=== PATIENT | female | born 1975 | race Caucasian/White ===

== ENCOUNTER 2016-07-19 10:59 | Outpatient (CLI) ==
[2015-01-18 19:32] VITALS: BMI 32.5
[2016-07-19 13:14] LABS: BASOPHILS # (AUTO) 0.1 K/uL (0-0.2); BASOPHILS % (AUTO) 0.8 % (0.0-3.0); EOSINOPHILS # (AUTO) 0.1 K/ul (0.0-0.7); EOSINOPHILS % (AUTO) 0.8 % (0.0-7.0); HEMATOCRIT 42.6 % (37.0-47.0); HEMOGLOBIN 13.6 g/dl (12.0-16.0); IMMATURE GRANULOCYTE % (AUTO) 1.1 % (0.0-5.0); LYMPHOCYTES # (AUTO) 2.4 K/uL (0.60-3.4); LYMPHOCYTES % (AUTO) 31.1 (10.0-50.0); MEAN CORPUSCULAR HEMOGLOBIN 27.3 pg (27.0-31.0); MEAN CORPUSCULAR HGB CONC 31.9 (31.8-35.4); MEAN CORPUSCULAR VOLUME 85.5 fl (81.0-99.0); MONOCYTES # (AUTO) 0.7 K/uL (0.4-2.0); MONOCYTES % (AUTO) 8.8 (0-10); NEUTROPHILS # (AUTO) 4.4 K/ul (2.0-6.9); NEUTROPHILS % (AUTO) 57.4; PLATELET COUNT 284 10^3/uL (140-440); RED BLOOD COUNT 4.98 10^6/ul (4.20-5.40)
[2016-07-19 13:51] LABS: ALBUMIN 3.9 g/dL (3.4-5.0); ANION GAP 14.9; BILIRUBIN,TOTAL 0.42 mg/dL (0.00-1.20); BUN/CREATININE RATIO 15.29; CALCIUM 9.5 mg/dL (8.2-10.2); CHOL/HDL RATIO 4.6 (4.5-5.5); CREATININE 0.85 mg/dL (0.60-1.30); POTASSIUM 3.9 mmol/L (3.5-5.10); TOTAL PROTEIN 7.8 g/dL (6.4-8.2)
== END 2016-07-19 11:00 | disposition home or self-care (01) ==
LOC: LAB 10:59
PROVIDERS: ATTEND Nurse Practitioner Family
DX: E78.5 Hyperlipidemia, unspecified (principal); Z87.09 Personal history of other diseases of the respiratory system
CPT/HCPCS: 36415; 80053; 80061; 84443; 85025

== ENCOUNTER 2016-07-21 08:01 | Outpatient (CLI) ==
[2015-01-18 19:32] VITALS: BMI 32.5
--- NOTE | 2016-07-21 20:41 | MRI ---
EXAM: Lumbar spine MRI without contrast. HISTORY: Back pain. COMPARISON: None. TECHNIQUE: Multiplanar, multisequence MR images were acquired of the lumbar spine without contrast. FINDINGS: Five lumbar-type vertebra are present. There is a minor mid lumbar dextroscoliosis. The lumbar vertebra are normal in height and intrinsic bone marrow signal. There is minor lumbar ventr al spondylosis. Conus medullaris ends at L1-2 and has normal signal intensity. Canal diameter is d evelopmentally narrow. The partially visualized liver, spleen and kidneys are unremarkable. T12-L1: The intervertebral disc is normal. L1-2: The intervertebral disc is normal. L2-3: There is a minor disc bulge that is considered physiologic which minimally narrows inferior n eural foramina bilaterally. L3-4: The intervertebral disc is normal. L4-5: There is a mild disc bulge that minimally effaces the ventral thecal sac and narrows the infe rior neural foramina bilaterally. There is mild bilateral facet arthropathy and ligamentum flavum h ypertrophy and tiny bilateral facet effusions. There are small synovial cysts along the posterior i nferior right facet joint and posterior to the left facet joint. There is mild left neural foramina l stenosis. L5-S1: The intervertebral disc is normal. IMPRESSION: 1. No lumbar disc herniations, central canal stenosis or pars interarticularis defects. 2. Mild disc bulge L4-5.
== END 2016-07-21 08:02 | disposition home or self-care (01) ==
LOC: RAD 08:01
PROVIDERS: ATTEND Nurse Practitioner Family
DX: M54.9 Dorsalgia, unspecified (principal); G89.29 Other chronic pain; M54.10 Radiculopathy, site unspecified; R01.1 Cardiac murmur, unspecified
CPT/HCPCS: 93005; 93010

== ENCOUNTER 2016-08-19 09:45 | Outpatient (CLI) ==
[2015-01-18 19:32] VITALS: BMI 32.5
--- NOTE | 2016-08-19 10:06 | DI ---
EXAM: Radiographs, right ankle HISTORY: Right ankle pain. COMPARISON: None available. TECHNIQUE: Three views. FINDINGS: Bone mineralization is decreased. There is no fracture or dislocation. The joint spaces are maintained. Small plantar calcaneal spur noted. No focal soft tissue abnormality is seen. IMPRESSION: 1. No fracture or dislocation. 2. Small plantar calcaneal spur.
--- NOTE | 2016-08-19 10:07 | DI ---
EXAM: Three views of the left foot. History: Left foot pain. Findings: No acute fracture or dislocation. No abnormal calcifications or radiopaque foreign tiara s. Joint spaces are preserved. Incidental os naviculare. Diffuse subcutaneous edema. Impression: No acute osseous abnormality. Diffuse subcutaneous edema.
--- NOTE | 2016-08-19 10:07 | DI ---
Examination: Three views of the left ankle. COMPARISON: Pain and right ankle and joints of right foot. COMPARISON: Right ankle 08/19/2016. FINDINGS: Soft tissue swelling or edema suggested. Plantar calcaneal enthesiophyte. There is no a cute fracture or dislocation. No radiopaque foreign body or subcutaneous emphysema. No osseous les ion. IMPRESSION: No acute fracture or dislocation. Suggestion of soft tissue swelling or edema. Correl ate with body habitus.
--- NOTE | 2016-08-19 10:07 | DI ---
Exam: Three x-rays of the right foot. Comparison: None available. Reason for exam: Pain in right foot. FINDINGS: No acute fracture or malalignment. The joint spaces are well maintained. There is a roun ded calcific density seen adjacent to the midfoot. Degenerative changes are seen in the first throu gh fifth arden. Impression: 1. No acute fracture or malalignment is seen within the right foot. 2. Rounded calcific density adjacent to the midfoot likely represent an accessory navicular. 3. Degenerative disease in the arden.
== END 2016-08-19 09:46 | disposition home or self-care (01) ==
LOC: RAD 09:45
PROVIDERS: ATTEND Nurse Practitioner Family
DX: M79.671 Pain in right foot (principal); M25.571 Pain in right ankle and joints of right foot

== ENCOUNTER 2016-08-23 09:16 | Outpatient (CLI) ==
[2015-01-18 19:32] VITALS: BMI 32.5
--- NOTE | 2016-08-23 10:19 | CT ---
EXAM: CT of the right foot without contrast History: Right foot pain. Comparison: Right foot radiograph 08/19/2016, right ankle radiograph 08/19/2016 Technique: Multiplanar CT images through the right foot were obtained without the administration of IV contrast Findings: No acute fracture or dislocation. Joint spaces are relatively preserved. Subcutaneous ed fela at the foot most prominent dorsal laterally. Evaluation for abscess is limited due to the lack of contrast administration but no drainable fluid collections are identified. No destructive osseou s changes to suggest osteomyelitis. Mild calcaneal enthesiopathy. Impression: 1. No acute osseous abnormality. 2. Subcutaneous edema at the foot most prominent dorsal laterally suggesting cellulitis. No fluid collections identified to suggest abscess.
--- NOTE | 2016-08-23 10:22 | CT ---
EXAM: CT scan of the left foot without contrast HISTORY: Pain in the left foot TECHNIQUE: Imaging of the left foot was performed without contrast. Sagittal and coronal reconstru ctions and axial images were provided for interpretation. FINDINGS: No acute fractures are seen. No lytic or destructive processes are identified. There is no evidence of fluid collection. The calcaneus and talus appear intact. No acute abnormalities ar e seen within the tarsal bones. There does appear to be subcutaneous edema seen within the dorsal an d lateral soft tissues of the right foot and hind foot. IMPRESSION: No acute fracture dislocation seen within the left foot. Subcutaneous edema seen within the dorsal and lateral soft tissues of the mid foot and hind foot.
== END 2016-08-23 09:17 | disposition home or self-care (01) ==
LOC: RAD 09:16
PROVIDERS: ATTEND Nurse Practitioner Family
DX: M79.671 Pain in right foot (principal); M79.672 Pain in left foot

== ENCOUNTER 2016-08-30 12:54 | Outpatient (CLI) ==
[2015-01-18 19:32] VITALS: BMI 32.5
--- NOTE | 2016-08-30 15:36 | MRI ---
EXAM: MRI of the right lower extremity without contrast COMPARISON: CT of the right foot 08/23/2016. Right foot radiographs 08/19/2016. HISTORY: Right foot pain extending laterally after injury tripping in a hole. TECHNIQUE: Multiplanar noncontrast MR images of the right midfoot and forefoot were acquired using a 1.2 Doris magnet. FINDINGS: There is abnormal signal morphology of the Lisfranc ligament with inversion recovery hype rintense signal and thinning/attenuation of the ligament in particular at the level of the second me tatarsal attachment consistent with a sprain/tear though there may be some thin residual intact fibe rs. No abnormal subluxation of the tarsometatarsal joints. Marrow edema within the second metatars al base extending along the attachment of the Lisfranc ligament without a definite avulsion fracture fragment. Adjacent muscle strain/contusion. Subcutaneous edema most pronounced along the dorsal a spect of the midfoot and forefoot without a focal soft tissue ulcer or drainable fluid collection. Mild degenerative spurring at the first metatarsophalangeal joint. Mild intermetatarsal bursitis in volving the first interspace at the level of the metatarsophalangeal joints. Small metatarsophalang eal joint effusions. Muscle atrophy. No full-thickness tendon tear or tendon retraction. IMPRESSION: 1. Sprain/tear of the Lisfranc ligament with question of some thin residual intact fibers as descri bed. No abnormal subluxation of the tarsometatarsal joints. Correlate with physical examination. 2. Marrow edema within the base of the second metatarsal along the attachment Lisfranc ligament wit hout a definite avulsion fracture fragment. 3. Subcutaneous edema which is most pronounced dorsally. 4. Mild degenerative changes. 5. Muscle atrophy.
== END 2016-08-30 12:55 | disposition home or self-care (01) ==
LOC: RAD 12:54
PROVIDERS: ATTEND Nurse Practitioner Family
DX: M79.671 Pain in right foot (principal); M79.672 Pain in left foot; M79.89 Other specified soft tissue disorders

== ENCOUNTER 2016-08-31 11:47 | Outpatient (CLI) ==
[2015-01-18 19:32] VITALS: BMI 32.5
--- NOTE | 2016-08-31 14:18 | MRI ---
EXAM: MRI of the left lower extremity without contrast COMPARISON: CT of the left foot 08/23/2016, foot radiographs 08/19/2016. HISTORY: Pain along the top of the foot extending laterally. Injury tripping in a hole. TECHNIQUE: Multiplanar noncontrast MR images of the left midfoot and forefoot were acquired using a 1.2 Doris magnet. FINDINGS: There is abnormal signal morphology of the Lisfranc ligament consistent with a tear with thinning indistinct appearance of the fibers in particular at the level of the second metatarsal bas e attachment. There may be some thin residual intact fibers without abnormal subluxation at the tar sometatarsal joints and correlation with physical examination is recommended. Adjacent muscle strai n/contusion. Low-level marrow edema within the base of the second metatarsal along the attachment L isfranc ligament without a discrete avulsion fracture. Low-level marrow edema within the third metat arsal base. Mild degenerative changes of the first metatarsophalangeal joint. There is subcutaneous edema along the dorsal aspect of the midfoot and forefoot without a drainable fluid collection. Muscle atrophy. No full-thickness tendon tear or tendon retraction. Small metata rsophalangeal joint effusions. IMPRESSION: 1. Abnormal signal and morphology of the Lisfranc ligament consistent with a tear with thinning/att enuation ligament fibers most pronounced at the second metatarsal base attachment. There may be karena e very thin residual intact fibers though correlation with physical examination is recommended. No abnormal subluxation at the tarsometatarsal joints. 2. Low-level marrow edema within the second and third metatarsal bases related stress reaction or c ontusion without a discrete fracture. Osteoarthrosis. Small metatarsophalangeal joint effusions. 3. Subcutaneous edema dorsally. 4. Muscle atrophy.
== END 2016-08-31 11:48 | disposition home or self-care (01) ==
LOC: RAD 11:47
PROVIDERS: ATTEND Nurse Practitioner Family
DX: M79.671 Pain in right foot (principal); M79.89 Other specified soft tissue disorders

== ENCOUNTER 2017-01-17 13:04 | Outpatient (CLI) ==
[2016-08-19 09:48] VITALS: BMI 32.5
[2017-01-17 14:01] LABS: CALCIUM 9.2 mg/dL (8.2-10.2); POTASSIUM 4.2 mmol/L (3.5-5.10)
[2017-01-17 14:39] LABS: ALBUMIN 3.7 g/dL (3.4-5.0); ALBUMIN/GLOBULIN RATIO 0.9; ANION GAP 15.2; BILIRUBIN,TOTAL 0.51 mg/dL (0.00-1.20); BUN/CREATININE RATIO 16.09; CHOL/HDL RATIO 5.4 (4.5-5.5); CREATININE 0.87 mg/dL (0.60-1.30); TOTAL PROTEIN 7.8 g/dL (6.4-8.2)
== END 2017-01-17 13:05 | disposition home or self-care (01) ==
LOC: LAB 13:04
PROVIDERS: ATTEND Nurse Practitioner Family
DX: E78.5 Hyperlipidemia, unspecified (principal)
CPT/HCPCS: 36415; 80053; 80061

== ENCOUNTER 2017-07-18 12:54 | Outpatient (CLI) ==
[2016-08-19 09:48] VITALS: BMI 32.5
== END 2017-07-18 12:55 | disposition home or self-care (01) ==
LOC: RHC-LAB 12:54
PROVIDERS: ATTEND Nurse Practitioner Family
DX: E78.5 Hyperlipidemia, unspecified (principal)
CPT/HCPCS: 36415; 85025

== ENCOUNTER 2017-07-19 12:20 | Outpatient (CLI) ==
[2016-08-19 09:48] VITALS: BMI 32.5
== END 2017-07-19 12:21 | disposition home or self-care (01) ==
LOC: RHC-LAB 12:20
PROVIDERS: ATTEND Nurse Practitioner Family
DX: E78.5 Hyperlipidemia, unspecified (principal)
CPT/HCPCS: 36415; 80053; 80061

== ENCOUNTER 2018-07-17 08:57 | Outpatient (CLI) ==
[2016-08-19 09:48] VITALS: BMI 32.5
== END 2018-07-17 08:58 | disposition home or self-care (01) ==
LOC: RHC-LAB 08:57
PROVIDERS: ATTEND Nurse Practitioner Family
DX: Z00.00 Encounter for general adult medical examination without abnormal findings (principal); E78.5 Hyperlipidemia, unspecified
CPT/HCPCS: 36415; 80053; 80061; 84443; 85025